=== PATIENT | male | born 1995 | race Caucasian/White ===

== ENCOUNTER 2018-09-10 03:20 | Inpatient (IN) | payer OTHER ==
[~2018-09-10] VITALS: Ht 185.4 cm; Wt 71.9 kg
[2018-09-10] MEDS ORDERED: NS 1,000 ML IV ONE ×2 (03:45→06:00)
[2018-09-10 03:51] LABS: BASO % 0.5 % (0.0-1.0); EOS # 0.1 10^3/uL (0.0-0.50); EOS % 1.1 % (0.0-3.0); HEMATOCRIT 43.9 % (42.0-52.0); HEMOGLOBIN 15.4 g/dl (13.5-17.5); LYMPH # 2.2 10^3/uL (1.5-6.5); LYMPH % 26.6 % (24.0-44.0); MEAN CORPUSCULAR HEMOGLOBIN 30.1 pg (27.0-33.0); MEAN CORPUSCULAR HGB CONC 35.1 g/dl (32.0-36.5); MEAN CORPUSCULAR VOLUME 85.7 fl (80.0-96.0); MONO # 0.5 10^3/uL (0.0-0.8); MONO % 6.4 % (0.0-5.0); NEUTROPHILS # 5.5 10^3/uL (1.8-7.7); PLATELET COUNT, AUTOMATED 271 10^3/uL (150-450); RED BLOOD COUNT 5.12 10^6/uL (4.30-6.10); WHITE BLOOD COUNT 8.4 10^3/uL (4.0-10.0)
[2018-09-10 04:11] LABS: AMPHETAMINES LEVEL URINE NEGATIVE (NEGATIVE); BARBITURATES URINE NEGATIVE (NEGATIVE); BENZODIAZEPINES URINE NEGATIVE (NEGATIVE); CANNABINOIDS URINE NEGATIVE (NEGATIVE); COCAINE METABOLITE URINE NEGATIVE (NEGATIVE); METHADONE URINE NEGATIVE (NEGATIVE); OPIATES URINE NEGATIVE (NEGATIVE); PHENCYCLIDINE URINE NEGATIVE (NEGATIVE)
[2018-09-10] MEDS ORDERED: TRAZ10TA PO (04:16)
[2018-09-10] MEDS ORDERED: PARO20TA3 PO (04:16)
[2018-09-10] MEDS ORDERED: PARO5TAB PO (04:16)
[2018-09-10] MEDS ORDERED: HYDRO50TAB PO (04:16)
[2018-09-10 04:31] LABS: ACETAMINOPHEN LEVEL < 2.0 UG/ML (10.0-30.0); ALBUMIN 4.3 GM/DL (3.2-5.2); ALT/SGPT 20 U/L (12-78); BILIRUBIN,DIRECT 0.1 MG/DL (0.0-0.2); BILIRUBIN,TOTAL 0.4 MG/DL (0.2-1.0); BLOOD UREA NITROGEN 11 MG/DL (7-18); CALCIUM LEVEL 8.4 MG/DL (8.5-10.1); CARBON DIOXIDE LEVEL 26 MEQ/L (21-32); CHLORIDE LEVEL 104 MEQ/L (98-107); CPK CREATINE PHOSPHOKINASE 58 U/L (39-308); CREATININE FOR GFR 0.91 MG/DL (0.70-1.30); ETHYL ALCOHOL (ETHANOL) < 0.003 % (0.000-0.010); GLUCOSE, FASTING 109 MG/DL (70-100); POTASSIUM SERUM 3.7 MEQ/L (3.5-5.1); SALICYLATE LEVEL < 1.7 MG/DL (5.0-30.0); SODIUM LEVEL 139 MEQ/L (136-145); TOTAL PROTEIN 7.5 GM/DL (6.4-8.2)
[2018-09-10] MEDS ORDERED: HYDR-3363 PO (10:24)
[2018-09-10] MEDS ORDERED: traZODone 50 MG TAB PO PRN (10:30)
[2018-09-10] MEDS ORDERED: ACETAMINOPHEN TAB 650MG DOSE (2X325MG) PO PRN (10:30)
[2018-09-10] MEDS ORDERED: IBUPROFEN 400 MG TAB PO PRN (10:30)
[2018-09-10] MEDS ORDERED: MOM 30ML SUSPENSION UDC PO PRN (10:30)
[2018-09-10 11:05] VITALS: BP 132/65
--- NOTE | 2018-09-10 13:17 | ECGEPIP ---
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
[2018-09-10] MEDS ORDERED: hydrOXYzine 25 MG TAB PO PRN (14:00)
[2018-09-10] MEDS: NICOTINE 21MG/24HR 1 EA TRANSDERMAL TD SCH (17:42)
[2018-09-10 18:00] VITALS: BP 112/68
--- NOTE | 2018-09-10 18:26 | MHHPEPDOC ---
General Chief Complaint I tried to kill myself by taking pills. History of Present Illness HISTORY OF THE PRESENT ILLNESS: Patient is a 22 -year-old , male, who as per ED report: "Pt presented to ED via [facility] after overdose on unknown quantity of Trazadone and Hydroxizine as SI attempt. Pt teary stated, depressed "all my life". According to Pt, stopped taking his meds last Thursday, "Made me tired and angry", "If some little thing would happen, I would just flip out". . Pt reported being chaptered out of , filing a [employer] case against him. Pt stated, no sense in going to PT and does not show up for work. Pt reported hx of substance abuse (cocaine), last used over a month ago. One trigger for increased depression is increase arguments with GF of 10 months, according to Pt. GF lives in [facility]. 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 Pt seen @ [facility]; Dr. Mahajan for therapy and Psy for meds. Pt also seen by Dr. Carlson weekly for substance abuse." Psychiatric Review of Systems Depression (2 or more weeks): depressed mood, insomnia/hypersomnia, feelings of worthlesness (hopeless), decreased energy, difficulty concentrating, appetite changes Analy (4 or more days of): denies Psychosis: denies PTSD: denies Anxiety: gen/non-specific anxiety Anxiety/ 6 months or more of: restlessness, keyed up, easily fatigued, difficulty concentrating, irritability, muscle tension, sleep disturbance Past Psychiatric History Previous Psychiatric Diagnosis: Denies Previous Psychiatric Admissions: Denies Suicide Attempts: None previous to this one ( ingesting Trazodone and Hydrox yzine tabs.) Psychiatric Follow-up: At [facility] Psychiatric medications: Trazodone, Hydroxyzine and paxil Past Medical History Head Injury: No Seizures: No Hospitalizations: Yes Surgeries: Yes ([place] tooth) Family Medical/Psychiatric HX Medical Problems Not aware of Psychiatric Disorders: Yes (Mom is very anxious, he says) Addiction: Yes (Father was an alcoholic) Suicide Attemps/Completions: No Addiction History nicotine, alcohol (occasionally), cocaine (drug of choice, meakes him feel unstoppable. ) Social History Childhood: Parents split when he was 6, he got a stepfather when he was in Middle school, he never liked him. He liked going to school. 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 Social Support: Legal: he is being chaptered out of the [employer] Marital: single, no children Mental Status Examination General Appearance: well groomed, appears stated age, hospital scubs/clothing Build: average Demeanor: withdrawn Eye Contact: avoidant (Because he was very sleepy) Activity: slowed Behavior: cooperative, loss of interests, anhedonia Speech: reg/rate,rhythm,volume Mood: depressed Affect: constricted, congruent Thought Process: logical/linear Thought Content (Delusions): none reported Thought Content (Other): none reported Thought Content (Aggressive): none reported Perception (Hallucinations): none reported Perception (Other): none reported Cognition (Impairment of): none reported Cognition(Intelligence Est.): average Oriented: Awake, Alert Insight: poor Judgment: Poor Diagnoses 1. Major Depressive disorder, recurrent 2. cocaine use disorder 3. R/O SALLY 4. R/O substance induced mood disorder Assessment Patient is very sleepy, possibly because he took an unspecified amount of Trazodone and Hydroxyzine. Will monitor closely. Initial Treatment Plan 1. Patient was admitted on a [9.39] status. 2. Complete history was obtained. 3. With patients permission, family will be contacted and database will be expanded. 4. Patients medication regimen will be reviewed and changed accordingly. 5. Patient will be provided with protected environment. 6. Patient will be treated with individual, group, and milieu therapies. 7. Patient will receive supportive psych-education. 8. Discharge planning will commence immediately. 9. Outpatient follow-up treatment will be strongly recommended. 10. The initial treatment plan will focus initially on: * Depression. * Risk for suicide. * Substance abuse. ESTIMATED LENGTH OF STAY: 5-7 DAYS. TIME SPENT COUNSELING AND COORDINATING INITIAL CARE: 45minutes. Vital Signs Vital Signs Date Time Temp Pulse Resp B/P (MAP) Pulse Ox O2 Delivery O2 Flow Rate FiO2 09/10/18 11:05 98.2 92 16 132/65 (87) 97 09/10/18 10:52 Room Air Laboratory Data 24H Labs Laboratory Tests 2 09/10/18 03:37: Immature Granulocyte % (Auto) 0.4, White Blood Count 8.4, Red Blood Count 5.12, Hemoglobin 15.4, Hematocrit 43.9, Mean Corpuscular Volume 85.7, Mean Corpuscular Hemoglobin 30.1, Mean Corpuscular Hemoglobin Concent 35.1, Red Cell Distribution Width 12.1, Platelet Count 271, Neutrophils (%) (Auto) 65.0, Lymphocytes (%) (Auto) 26.6, Monocytes (%) (Auto) 6.4H, Eosinophils (%) (Auto) 1.1, Basophils (%) (Auto) 0.5, Neutrophils # (Auto) 5.5, Lymphocytes # (Auto) 2.2, Monocytes # (Auto) 0.5, Eosinophils # (Auto) 0.1, Basophils # (Auto) 0.0, Nucleated Red Blood Cells % (auto) 0.0, Anion Gap 9, Calcium Level 8.4L, Aspartate Amino Transf (AST/SGOT) 13, Alanine Aminotransferase (ALT/SGPT) 20, Alkaline Phosphatase 63, Total Bilirubin 0.4, Direct Bilirubin 0.1, Total Creatine Kinase 58, Total Protein 7.5, Albumin 4.3, Albumin/Globulin Ratio 1.34, Thyroid Stimulating Hormone (TSH) 2.080, Salicylates Level < 1.7L, Urine Amphetamines Screen NEGATIVE, Urine Benzodiazepines Screen NEGATIVE, Urine Opiates Screen NEGATIVE, Urine Methadone Screen NEGATIVE, Acetaminophen Level < 2.0L, Urine Barbiturates Screen NEGATIVE, Urine Phencyclidine Screen NEGATIVE, Urine Cocaine Metabolite Screen NEGATIVE, Urine Cannabinoids Screen NEGATIVE, Ethyl Alcohol Level < 0.003 09/10/18 04:05: Bedside Glucose (Misc Panel) 96 CBC/BMP Laboratory Tests 09/10/18 03:37 Red Blood Count 5.12, Mean Corpuscular Volume 85.7, Mean Corpuscular Hemoglobin 30.1, Mean Corpuscular Hemoglobin Concent 35.1, Red Cell Distribution Width 12.1, Neutrophils (%) (Auto) 65.0, Lymphocytes (%) (Auto) 26.6, Monocytes (%) (Auto) 6.4 H, Eosinophils (%) (Auto) 1.1, Basophils (%) (Auto) 0.5, Neutrophils # (Auto) 5.5, Lymphocytes # (Auto) 2.2, Monocytes # (Auto) 0.5, Eosinophils # (Auto) 0.1, Basophils # (Auto) 0.0 Medications Scheduled Hydroxyzine HCl (Hydroxyzine HCl) 25 Mg Tab, 100 MG PO QHS, (Reported) Paroxetine (Paroxetine HCl) 20 Mg Tab, 20 MG PO DAILY, (Reported) Trazodone HCl (Trazodone HCl) 100 Mg Tab, 200 MG PO QHS, (Reported) Allergies Coded Allergies: No Known Allergies (Unverified , 09/10/18) EUGENE HOBBS MD Sep 10, 2018 15:37
[2018-09-10] MEDS ORDERED: traZODone 100 MG TAB PO SCH (21:00)
[2018-09-11 06:00] VITALS: BP 105/59
[2018-09-11] MEDS: SERTRALINE HCL 50 MG TAB PO SCH (08:18)
[2018-09-11] MEDS: NICOTINE 21MG/24HR 1 EA TRANSDERMAL TD SCH (08:18)
[2018-09-11 18:00] VITALS: BP 98/60
[2018-09-11] MEDS: zolPIDEM CR 6.25MG TABLET (AMBIEN CR) PO PRN (21:28)
[2018-09-12 06:00] VITALS: BP 115/59
[2018-09-12] MEDS: SERTRALINE HCL 50 MG TAB PO SCH (08:06)
[2018-09-12] MEDS: NICOTINE 21MG/24HR 1 EA TRANSDERMAL TD SCH (08:06)
--- NOTE | 2018-09-12 16:50 | MHIPN ---
DATE: 09/11/2018 CHIEF COMPLAINT: Feels better. SUBJECTIVE: Is seen for followup in the presence of staff. Says feels better, less anxious. Says sleep is improved, which he feels has helped. MENTAL STATUS EXAMINATION: Neat, cooperative. There is no agitation. No psychomotor retardation. He is coherent. Affect is restricted in range, somewhat incongruent with mood. Denies any suicidal thoughts or intents at present. No homicidal ideas or intents. No current evidence of any psychosis. Cognition is grossly intact. Judgment is good, possibly improved. Insight is fair. ASSESSMENT: 1. Major depressive disorder, recurrent. 2. Cocaine use disorder. 3. Rule out generalized anxiety disorder. PLAN: Continue current care, observations. Encourage participation in activities in the unit. VITAL SIGNS: These are as listed. Blood pressure 105/59, pulse 59, temperature 97.6.
[2018-09-12 18:00] VITALS: BP 128/82
[2018-09-12] MEDS: zolPIDEM CR 6.25MG TABLET (AMBIEN CR) PO PRN (20:39)
[2018-09-13 06:51] VITALS: BP 108/69
[2018-09-13] MEDS: SERTRALINE HCL 50 MG TAB PO SCH (08:00)
[2018-09-13] MEDS: NICOTINE 21MG/24HR 1 EA TRANSDERMAL TD SCH (08:00)
--- NOTE | 2018-09-13 17:18 | MHIPN ---
DATE: 09/12/2018 CHIEF COMPLAINT: He says he feels better. SUBJECTIVE: He is seen for followup. He indicates he feels better, less anxious, less depressed, says is glad he is here, and that he is away from his stressors, which he suggests is mostly the , the whole setup, and the way things are done. He says he has spoken with his mother, who is aware that he is here. MENTAL STATUS EXAMINATION: Neat, cooperative. Coherent. No agitation. No psychomotor retardation. Affect is a bit broader than yesterday. He denies any suicidal thoughts or intents. No homicidal ideas or intents. No current evidence of any psychosis. Cognition is grossly intact. His judgment and insight remain compromised. ASSESSMENT: 1. Major depressive disorder, recurrent. 2. Cocaine use disorder, PLAN: Continue current care, observations. VITAL SIGNS: Blood pressure 115/59, pulse 55, temperature 98.1. He will be seeing the psychiatrist as well as the treatment team tomorrow.
[2018-09-13 18:00] VITALS: BP 128/66
--- NOTE | 2018-09-13 19:20 | MHIPNPDOC ---
[facility] Progress Note Progress Note DATE OF SERVICE: 09/13/18 HISTORY: Chief Complaint I tried to kill myself by taking pills. History of Present Illness HISTORY OF THE PRESENT ILLNESS: Patient is a 22 -year-old , male, who as per ED report: "Pt presented to ED via . [facility] after overdose on unknown quantity of Trazadone and Hydroxizine as SI attempt. Pt teary stated, depressed "all my life". According to Pt, stopped taking his meds last Thursday, "Made me tired and angry", "If some little thing would happen, I would just flip out". . Pt reported being chaptered out of , filing a [employer] case against him. Pt stated, no sense in going to PT and does not show up for work. Pt reported hx of substance abuse (cocaine), last used over a month ago. One trigger for increased depression is increase arguments with GF of 10 months, according to Pt. GF lives in [facility]. 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 Pt seen @ [facility]; Dr. Mahajan for therapy and Psy for meds. Pt also seen by Dr. Carlson weekly for substance abuse." VITAL SIGNS: See below. NEW TEST RESULTS: See below CURRENT MEDICATIONS: See below. MENTAL STATUS EXAMINATION: Patient is a 22-year old male, who is alert, cooperative, presents to the office wearing personal clothes, proper hygiene and grooming. Speech: Is normal in rate, tone and volume. Spontaneous and fluent. Language skills are good. Thought processes including: intact, logical, coherent. Thought content: anxious thoughts about being from the . Abstract reasoning, and computation: good. Description of associations: good, intact. Description of abnormal or psychotic thoughts: Denies SI, denies HI, denies AV hallucinations, denies thought delusions Judgment: Poor Insight: poor. Orientation: x 3. Recent and remote memory: good. Attention span and concentration: good. Language: normal, well structured, fair vocabulary. Fund of knowledge: average. Mood: anxious/sad. Affect: congruent with mood. DIAGNOSES: 1. Major Depressive disorder, recurrent 2. cocaine use disorder 3. R/O SALLY 4. R/O substance induced mood disorder ASSESSMENT: Patient is stable but he tries to mnimize his problems/symptoms. He is still not very opened about what motivated his recent severe overdose with Trazodone and Hydroxyzine, although he blames it on recent problems with his GF and stress from his job because he is being chaptered out of the . Patient agrees to go to long term care administrator treatment, he says he would like to have more information about it and tw informed him that his d/c account planner will provide him with that information. He says that Zoloft makes him feel a little bit cloudy in the morning, for a bout an hour but it goes away and then, he feels alright. MANAGEMENT PLAN: Will continue with current treatment plan TIME SPENT: 20 minutes. Vital Signs Vital Signs Date Time Temp Pulse Resp B/P (MAP) Pulse Ox O2 Delivery O2 Flow Rate FiO2 09/13/18 18:00 98.5 100 18 128/66 (86) 09/10/18 11:05 97 09/10/18 10:52 Room Air Current Medications Current Medications Acetaminophen (Tylenol Tab) 650 mg Q6HP PRN PO HEADACHE or DISCOMFORT Last ad ministered on 09/12/18at 13:48; Start 09/10/18 at 10:30 Home Med (Med Rec Complete!) ASDIRECTED XX ; Start 09/10/18 at 10:30; Stop 09/10/18 at 10:30; Status DC Hydroxyzine HCl (Atarax) 25 mg QHSP PRN PO INSOMNIA; Start 09/10/18 at 14:00 Ibuprofen (Advil) 400 mg Q6HP PRN PO PAIN; Start 09/10/18 at 10:30; Status Cancel Magnesium Hydroxide (Milk Of Magnesia) 30 ml DAILYPRN PRN PO CONSTIPATION; Start 09/10/18 at 10:30 Nicotine (Nicoderm Cq 21mg) 1 patch DAILY TD Last administered on 09/13/18at 08:00; Start 09/10/18 at 09:00 Sertraline HCl (Zoloft) 50 mg DAILY PO Last administered on 09/13/18at 08:00; Start 09/11/18 at 09:00 Trazodone HCl (Desyrel) 50 mg QHSP PRN PO INSOMNIA; Start 09/10/18 at 10:30; Status Cancel Trazodone HCl (Desyrel) 200 mg QHS PO ; Start 09/10/18 at 21:00; Status Cancel Zolpidem Tartrate (Ambien Cr) 12.5 mg QHSP PRN PO SLEEP Last administered on 09/12/18at 20:39; Start 09/10/18 at 15:45 Allergies Coded Allergies: No Known Allergies (Unverified , 09/10/18) EUGENE HOBBS MD Sep 13, 2018 19:14
[2018-09-13] MEDS: zolPIDEM CR 6.25MG TABLET (AMBIEN CR) PO PRN (20:10)
[2018-09-14 06:43] VITALS: BP 114/76
[2018-09-14] MEDS: SERTRALINE HCL 50 MG TAB PO SCH (08:09)
[2018-09-14] MEDS: NICOTINE 21MG/24HR 1 EA TRANSDERMAL TD SCH (08:09)
--- NOTE | 2018-09-14 10:54 | HPE ---
DATE OF ADMISSION: 09/10/2018 HISTORY OF PRESENT ILLNESS: Please refer to psychiatric history and evaluation for further details on this admission. This examination and history is intended for medical issues, which may need treatment, followup or consultation on this 22-year old male. ALLERGIES: No known drug allergies. PRIMARY CARE PROVIDER: [facility] at [place]. 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 ETOH: Approximately once a month. Smokes one-half pack cigarettes per day. Recreational drug use: Cocaine. He has done none for two months. PAST MEDICAL HISTORY: Depression, anxiety. PAST SURGICAL HISTORY: [place] teeth extraction. HOME MEDICATIONS: - hydroxyzine 100 mg by mouth nightly - paroxetine 20 mg by mouth by mouth daily - trazodone 200 mg by mouth daily FAMILY HISTORY: Noncontributory. LABORATORY STUDIES: WBC 8.4, hemoglobin 15.4, hematocrit 43.9, platelets 271. Electrolytes were normal. BUN 11, creatinine 0.91. Calcium slightly low at 8.4. toxicology was . REVIEW OF SYSTEMS: 10-systems reviewed and were unremarkable. Patient had no complaints. PHYSICAL EXAMINATION: GENERAL: 22-year-old cooperative male, no acute distress. VITAL SIGNS: Height 73 inches, weight 72.7 kilograms, body mass index (BMI) 21.1. Blood pressure 105/59, pulse 59, respiratory rate 15, temperature 97.6. Patient is alert and oriented times three. Pupils equal, reactive to light. Extraocular muscles intact. Cornea and sclerae clear. Conjunctiva is normal. No facial asymmetry. Pharynx, tongue and gums pink and moist. Tongue is midline. Neck is supple without lymphadenopathy. No thyromegaly. No goiter. Carotids 2+ without bruit. CHEST: Clear to auscultation without wheeze or retraction. Heart is regular. ABDOMEN: Benign. Bowel sounds positive. GENITOURINARY ()/RECTAL: Not done. EXTREMITIES: Show equal strength, full range of motion. No cyanosis, clubbing, or edema. Peripheral pulses equal and palpable bilaterally. SKIN: Is warm and dry. IMPRESSION/PLAN: 1. Psychiatric plan per psychiatry. 2. No acute medical issues.
[2018-09-14 18:00] VITALS: BP 120/56
--- NOTE | 2018-09-14 18:55 | MHIPNPDOC ---
[facility] Progress Note Progress Note DATE OF SERVICE: 09/14/18 HISTORY: Chief Complaint I tried to kill myself by taking pills. History of Present Illness HISTORY OF THE PRESENT ILLNESS: Patient is a 22 -year-old , male, who as per ED report: "Pt presented to ED via . [facility] after overdose on unknown quantity of Trazadone and Hydroxizine as SI attempt. Pt teary stated, depressed "all my life". According to Pt, stopped taking his meds last Thursday, "Made me tired and angry", "If some little thing would happen, I would just flip out". . Pt reported being chaptered out of , filing a [employer] case against him. Pt stated, no sense in going to PT and does not show up for work. Pt reported hx of substance abuse (cocaine), last used over a month ago. One trigger for increased depression is increase arguments with GF of 10 months, according to Pt. GF lives in [facility]. 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 Pt seen @ [facility]; Dr. Mahajan for therapy and Psy for meds. Pt also seen by Dr. Carlson weekly for substance abuse." VITAL SIGNS: See below. NEW TEST RESULTS: See below CURRENT MEDICATIONS: See below. MENTAL STATUS EXAMINATION: Patient is a 22-year old male, who is alert, cooperative, presents to the office wearing personal clothes, proper hygiene and grooming. Speech: Is normal in rate, tone and volume. Spontaneous and fluent. Language skills are good. Thought processes including: intact, logical, coherent. Thought content: anxious thoughts about going to long-term treatment Abstract reasoning, and computation: good. Description of associations: good, intact. Description of abnormal or psychotic thoughts: Denies SI, denies HI, denies AV hallucinations, denies thought delusions Judgment: Poor Insight: poor. Orientation: x 3. Recent and remote memory: good. Attention span and concentration: good. Language: normal, well structured, fair vocabulary. Fund of knowledge: average. Mood: anxious/sad. Affect: congruent with mood. DIAGNOSES: 1. Major Depressive disorder, recurrent 2. cocaine use disorder 3. R/O SALLY 4. R/O substance induced mood disorder ASSESSMENT: Patient had agreed going to long-term treatment but now he says he doesn't want to go, that when he thinks about it he becomes really frightened, that he doesn't get "a good vibe" of "that place". 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 Patient continues to refuse. Otherwise he was pleasant, cooperative but still anxious MANAGEMENT PLAN: Will continue with current treatment plan TIME SPENT: 20 minutes. Vital Signs Vital Signs Date Time Temp Pulse Resp B/P (MAP) Pulse Ox O2 Delivery O2 Flow Rate FiO2 09/14/18 18:00 99.3 83 16 120/56 (77) 09/14/18 09:09 Room Air 09/10/18 11:05 97 Current Medications Current Medications Acetaminophen (Tylenol Tab) 650 mg Q6HP PRN PO HEADACHE or DISCOMFORT Last administered on 09/12/18at 13:48; Start 09/10/18 at 10:30 Home Med (Med Rec Complete!) ASDIRECTED XX ; Start 09/10/18 at 10:30; Stop 09/10/18 at 10:30; Status DC Hydroxyzine HCl (Atarax) 25 mg QHSP PRN PO INSOMNIA; Start 09/10/18 at 14:00 Ibuprofen (Advil) 400 mg Q6HP PRN PO PAIN; Start 09/10/18 at 10:30; Status C ancel Magnesium Hydroxide (Milk Of Magnesia) 30 ml DAILYPRN PRN PO CONSTIPATION; Start 09/10/18 at 10:30 Nicotine (Nicoderm Cq 21mg) 1 patch DAILY TD Last administered on 09/14/18at 08:09; Start 09/10/18 at 09:00 Sertraline HCl (Zoloft) 50 mg DAILY PO Last administered on 09/14/18at 08:09; Start 09/11/18 at 09:00 Trazodone HCl (Desyrel) 50 mg QHSP PRN PO INSOMNIA; Start 09/10/18 at 10:30; Status Cancel Trazodone HCl (Desyrel) 200 mg QHS PO ; Start 09/10/18 at 21:00; Status Cancel Zolpidem Tartrate (Ambien Cr) 12.5 mg QHSP PRN PO SLEEP Last administered on 09/13/18at 20:10; Start 09/10/18 at 15:45 Allergies Coded Allergies: No Known Allergies (Unverified , 09/10/18) EUGENE HOBBS MD Sep 14, 2018 18:55
[2018-09-14] MEDS: zolPIDEM CR 6.25MG TABLET (AMBIEN CR) PO PRN (20:20)
[2018-09-15 06:46] VITALS: BP 99/55
[2018-09-15] MEDS: SERTRALINE HCL 50 MG TAB PO SCH (08:15)
[2018-09-15] MEDS: NICOTINE 21MG/24HR 1 EA TRANSDERMAL TD SCH (08:16)
--- NOTE | 2018-09-15 11:12 | MHIPNPDOC ---
[facility] Progress Note Progress Note DATE OF SERVICE: 09/15/18 HISTORY: Chief Complaint I tried to kill myself by taking pills. History of Present Illness HISTORY OF THE PRESENT ILLNESS: Patient is a 22 -year-old , male, who as per ED report: "Pt presented to ED via . [facility] after overdose on unknown quantity of Trazadone and Hydroxizine as SI attempt. Pt teary stated, depressed "all my life". According to Pt, stopped taking his meds last Thursday, "Made me tired and angry", "If some little thing would happen, I would just flip out". . Pt reported being chaptered out of , filing a [employer]ARP case against him. Pt stated, no sense in going to PT and does not show up for work. Pt reported hx of substance abuse (cocaine), last used over a month ago. One trigger for increased depression is increase arguments with GF of 10 months, according to Pt. GF lives in [facility]. 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 Pt seen @ [facility]; Dr. Mahajan for therapy and Psy for meds. Pt also seen by Dr. Carlson weekly for substance abuse." VITAL SIGNS: See below. NEW TEST RESULTS: See below CURRENT MEDICATIONS: See below. MENTAL STATUS EXAMINATION: Patient is a 22-year old male, who is alert, cooperative, presents to the office wearing personal clothes, proper hygiene and grooming. Speech: Is normal in rate, tone and volume. Spontaneous and fluent. Language skills are good. Thought processes including: intact, logical, coherent. Thought content: anxious thoughts about future life plans Abstract reasoning, and computation: good. Description of associations: good, intact. Description of abnormal or psychotic thoughts: Denies SI, denies HI, denies AV hallucinations, denies thought delusions Judgment: Poor Insight: poor. Orientation: x 3. Recent and remote memory: good. Attention span and concentration: good. Language: normal, well structured, fair vocabulary. Fund of knowledge: average. Mood: less anxious/sad. Affect: congruent with mood. DIAGNOSES: 1. Major Depressive disorder, recurrent 2. cocaine use disorder 3. R/O SALLY 4. R/O substance induced mood disorder ASSESSMENT: Patient was asked by media planner / buyer and myself what his choice was for superintendent marine oil terminal care and he says that he has decided to refuse. superintendent marine oil terminal care was recommended but he says "he gets a really bad feeling in his stomach and that is scares him." He says that he is feeling much better since admission, his depression and anxiety have both improved. We discussed his plans for the future. He says that first his mother is going to come to [place] from their home in [place] and he plans to take a few days leave to be with her. He says he is a huge family oriented person and believes that missing home and his fami ly/GF is part of his depression. 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 He regularly attends group sessions and believes they are educational for him and fun. Otherwise he was pleasant, cooperative but still says he is "scared" about the rest of his life but recognizes that everyone has those fears about the next step. Manuel denies any suicidal ideations, no homicidal ideations. no paranoia, no AV hallucinations. MANAGEMENT PLAN: Will continue with current treatment plan Vital Signs Vital Signs Date Time Temp Pulse Resp B/P (MAP) Pulse Ox O2 Delivery O2 Flow Rate FiO2 09/15/18 06:46 98.1 62 12 99/55 (70) 09/14/18 09:09 Room Air 09/10/18 11:05 97 Current Medications Current Medications Acetaminophen (Tylenol Tab) 650 mg Q6HP PRN PO HEADACHE or DISCOMFORT Last administered on 09/12/18at 13:48; Start 09/10/18 at 10:30 Home Med (Med Rec Complete!) ASDIRECTED XX ; Start 09/10/18 at 10:30; Stop 09/10/18 at 10:30; Status DC Hydroxyzine HCl (Atarax) 25 mg QHSP PRN PO INSOMNIA; Start 09/10/18 at 14:00 Ibuprofen (Advil) 400 mg Q6HP PRN PO PAIN; Start 09/10/18 at 10:30; Status Cancel Magnesium Hydroxide (Milk Of Magnesia) 30 ml DAILYPRN PRN PO CONSTIPATION; Start 09/10/18 at 10:30 Nicotine (Nicoderm Cq 21mg) 1 patch DAILY TD Last administered on 09/15/18at 08:16; Start 09/10/18 at 09:00 Sertraline HCl (Zoloft) 50 mg DAILY PO Last administered on 09/15/18at 08:15; Start 09/11/18 at 09:00 Trazodone HCl (Desyrel) 50 mg QHSP PRN PO INSOMNIA; Start 09/10/18 at 10:30; Status Cancel Trazodone HCl (Desyrel) 200 mg QHS PO ; Start 09/10/18 at 21:00; Status Cancel Zolpidem Tartrate (Ambien Cr) 12.5 mg QHSP PRN PO SLEEP Last administered on 09/14/18at 20:20; Start 09/10/18 at 15:45 Allergies Coded Allergies: No Known Allergies (Unverified , 09/10/18) GME ATTESTATION GME ATTESTATION My faculty preceptor for this patient encounter was physically present during the encounter and was fully available. All aspects of the patient interview, e xamination, medical decision making process, and medical care plan development were reviewed and approved by the faculty preceptor. The faculty preceptor is aware and concurs with the plan as stated in the body of this note and will attest to such by his/her cosignature. ERINN ORTIZ S-III Sep 15, 2018 11:12
[2018-09-15 18:00] VITALS: BP 127/61
[2018-09-15] MEDS: zolPIDEM CR 6.25MG TABLET (AMBIEN CR) PO PRN (20:05)
[2018-09-16 06:41] VITALS: BP 95/52
[2018-09-16] MEDS: SERTRALINE HCL 50 MG TAB PO SCH (08:18)
[2018-09-16] MEDS: NICOTINE 21MG/24HR 1 EA TRANSDERMAL TD SCH (08:19)
--- NOTE | 2018-09-16 09:11 | MHIPNPDOC ---
[facility] Progress Note Progress Note DATE OF SERVICE: 09/16/18 HISTORY: Chief Complaint I tried to kill myself by taking pills. History of Present Illness HISTORY OF THE PRESENT ILLNESS: Patient is a 22 -year-old , male, who as per ED report: "Pt presented to ED via . [facility] after overdose on unknown quantity of Trazadone and Hydroxizine as SI attempt. Pt teary stated, depressed "all my life". According to Pt, stopped taking his meds last Thursday, "Made me tired and angry", "If some little thing would happen, I would just flip out". . Pt reported being chaptered out of , filing a SHARP case against him. Pt stated, no sense in going to PT and does not show up for work. Pt reported hx of substance abuse (cocaine), last used over a month ago. One trigger for increased depression is increase arguments with GF of 10 months, according to Pt. GF lives in [facility]. 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 Pt seen @ [facility]; Dr. Mahajan for therapy and Psy for meds. Pt also seen by Dr. Carlson weekly for substance abuse." VITAL SIGNS: See below. NEW TEST RESULTS: See below CURRENT MEDICATIONS: See below. MENTAL STATUS EXAMINATION: Patient is a 22-year old male, who is alert, cooperative, presents to the office wearing hospital scrubs, proper hygiene and grooming. Speech: Is normal in rate, tone and volume. Spontaneous and fluent. Language skills are good. Thought processes including: intact, logical, coherent. Thought content: anxious thoughts about future life plans Abstract reasoning, and computation: good. Description of associations: good, intact. Description of abnormal or psychotic thoughts: Denies SI, denies HI, denies AV hallucinations, denies thought delusions Judgment: limited Insight: limited Orientation: x 3. Recent and remote memory: good. Attention span and concentration: good. Language: normal, well structured, fair vocabulary. Fund of knowledge: average. Mood: less anxious/sad. Affect: congruent with mood. DIAGNOSES: 1. Major Depressive disorder, recurrent 2. cocaine use disorder 3. R/O SALLY 4. R/O substance induced mood disorder ASSESSMENT: Manuel was interviewed this morning and says that his depression and anxiety are "basically not there." He says that he has been feeling better, maybe a little bored, but he talks to people and goes to group sessions. He said that last night he called his GF back home in [place] but that it was like she did not really want to talk. He is not concerned or upset with this and says "if it works out, good. If it doesn't that's fine. I'm only 22." He was also in contact with his family regularly and that is going well. We talked about his support system at [facility]. He says that since he has been here his command has been visiting and "he didn't know they cared." He says that he learned that there are people on his side back at [facility] to help support him when he is discharged from the hospital before being chaptered. He continues to refuse termite treater treatment. Manuel denies any suicidal ideations, no homicidal ideations. no paranoia, no AV hallucinations. MANAGEMENT PLAN: Will continue with current treatment plan Vital Signs Vital Signs Date Time Temp Pulse Resp B/P (MAP) Pulse Ox O2 Delivery O2 Flow Rate FiO2 09/16/18 06:41 98.0 62 12 95/52 (66) 09/14/18 09:09 Room Air 09/10/18 11:05 97 Current Medications Current Medications Acetaminophen (Tylenol Tab) 650 mg Q6HP PRN PO HEADACHE or DISCOMFORT Last administered on 09/12/18at 13:48; Start 09/10/18 at 10:30 Home Med (Med Rec Complete!) ASDIRECTED XX ; Start 09/10/18 at 10:30; Stop 09/10/18 at 10:30; Status DC Hydroxyzine HCl (Atarax) 25 mg QHSP PRN PO INSOMNIA; Start 09/10/18 at 14:00 Ibuprofen (Advil) 400 mg Q6HP PRN PO PAIN; Start 09/10/18 at 10:30; Status Cancel Magnesium Hydroxide (Milk Of Magnesia) 30 ml DAILYPRN PRN PO CONSTIPATION; Start 09/10/18 at 10:30 Nicotine (Nicoderm Cq 21mg) 1 patch DAILY TD Last administered on 09/16/18at 08:19; Start 09/10/18 at 09:00 Sertraline HCl (Zoloft) 50 mg DAILY PO Last administered on 09/16/18at 08:18; Start 09/11/18 at 09:00 Trazodone HCl (Desyrel) 50 mg QHSP PRN PO INSOMNIA; Start 09/10/18 at 10:30; Status Cancel Trazodone HCl (Desyrel) 200 mg QHS PO ; Start 09/10/18 at 21:00; Status Cancel Zolpidem Tartrate (Ambien Cr) 12.5 mg QHSP PRN PO SLEEP Last administered on 09/15/18at 20:05; Start 09/10/18 at 15:45 Allergies Coded Allergies: No Known Allergies (Unverified , 09/10/18) GME ATTESTATION GME ATTESTATION My faculty preceptor for this patient encounter was physically present during the encounter and was fully available. All aspects of the patient interview, examination, medical decision making process, and medical care plan development were reviewed and approved by the faculty preceptor. The faculty preceptor is aware and concurs with the plan as stated in the body of this note and will attest to such by his/her cosignature. ERINN ORTIZ S-III Sep 16, 2018 09:11
[2018-09-16 18:00] VITALS: BP 122/63
[2018-09-16] MEDS: zolPIDEM CR 6.25MG TABLET (AMBIEN CR) PO PRN (21:02)
[2018-09-17 06:20] VITALS: BP 113/59
[2018-09-17] MEDS: SERTRALINE HCL 50 MG TAB PO SCH (08:54)
[2018-09-17] MEDS: NICOTINE 21MG/24HR 1 EA TRANSDERMAL TD SCH (08:55)
--- NOTE | 2018-09-17 11:49 | MHIPNPDOC ---
[facility] Progress Note Progress Note DATE OF SERVICE: 09/17/18 HISTORY: Chief Complaint I tried to kill myself by taking pills. History of Present Illness HISTORY OF THE PRESENT ILLNESS: Patient is a 22 -year-old , male, who as per ED report: "Pt presented to ED via . [facility] after overdose on unknown quantity of Trazadone and Hydroxizine as SI attempt. Pt teary stated, depressed "all my life". According to Pt, stopped taking his meds last Thursday, "Made me tired and angry", "If some little thing would happen, I would just flip out". . Pt reported being chaptered out of , filing a SHARP case against him. Pt stated, no sense in going to PT and does not show up for work. Pt reported hx of substance abuse (cocaine), last used over a month ago. One trigger for increased depression is increase arguments with GF of 10 months, according to Pt. GF lives in [facility]. 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 Pt seen @ [facility]; Dr. Mahajan for therapy and Psy for meds. Pt also seen by Dr. Carlson weekly for substance abuse." VITAL SIGNS: See below. NEW TEST RESULTS: See below CURRENT MEDICATIONS: See below. MENTAL STATUS EXAMINATION: Patient is a 22-year old male, who is alert, cooperative, presents to the office wearing hospital scrubs, proper hygiene and grooming. Speech: Is normal in rate, tone and volume. Spontaneous and fluent. Language skills are good. Thought processes including: intact, logical, coherent. Thought content: anxious thoughts about future life plans Abstract reasoning, and computation: good. Description of associations: good, intact. Description of abnormal or psychotic thoughts: Denies SI, denies HI, denies AV hallucinations, denies thought delusions Judgment: poor Insight: poor Orientation: x 3. Recent and remote memory: good. Attention span and concentration: good. Language: normal, well structured, fair vocabulary. Fund of knowledge: average. Mood: less anxious/sad. Affect: congruent with mood. DIAGNOSES: 1. Major Depressive disorder, recurrent 2. cocaine use disorder 3. R/O SALLY 4. R/O substance induced mood disorder ASSESSMENT: Manuel was interviewed this morning and once again says that his depression and anxiety are "basically not there." He says that he feels good, attends all group sessions, and is social. He continues to refuse alf treatment. Has poor insight about his current predicaments. Manuel denies any suicidal ideations, no homicidal ideations. no paranoia, no AV hallucinations. MANAGEMENT PLAN: Will continue with current treatment plan Vital Signs Vital Signs Date Time Temp Pulse Resp B/P (MAP) Pulse Ox O2 Delivery O2 Flow Rate FiO2 09/17/18 06:20 99.0 59 16 113/59 (77) 09/14/18 09:09 Room Air Current Medications Current Medications Acetaminophen (Tylenol Tab) 650 mg Q6HP PRN PO HEADACHE or DISCOMFORT Last administered on 09/12/18at 13:48; Start 09/10/18 at 10:30 Home Med (Med Rec Complete!) ASDIRECTED XX ; Start 09/10/18 at 10:30; Stop 09/10/18 at 10:30; Status DC Hydroxyzine HCl (Atarax) 25 mg QHSP PRN PO INSOMNIA; Start 09/10/18 at 14:00 Ibuprofen (Advil) 400 mg Q6HP PRN PO PAIN; Start 09/10/18 at 10:30; Status Cancel Magnesium Hydroxide (Milk Of Magnesia) 30 ml DAILYPRN PRN PO CONSTIPATION; Start 09/10/18 at 10:30 Nicotine (Nicoderm Cq 21mg) 1 patch DAILY TD Last administered on 09/17/18at 08:55; Start 09/10/18 at 09:00 Sertraline HCl (Zoloft) 50 mg DAILY PO Last administered on 09/17/18at 08:54; Start 09/11/18 at 09:00 Trazodone HCl (Desyrel) 50 mg QHSP PRN PO INSOMNIA; Start 09/10/18 at 10:30; Status Cancel Trazodone HCl (Desyrel) 200 mg QHS PO ; Start 09/10/18 at 21:00; Status Cancel Zolpidem Tartrate (Ambien Cr) 12.5 mg QHSP PRN PO SLEEP Last administered on 09/16/18at 21:02; Start 09/10/18 at 15:45 Allergies Coded Allergies: No Known Allergies (Unverified , 09/10/18) GME ATTESTATION GME ATTESTATION My faculty preceptor for this patient encounter was physically present during the encounter and was fully available. All aspects of the patient interview, examination, medical decision making process, and medical care plan development were reviewed and approved by the faculty preceptor. The faculty preceptor is aware and concurs with the plan as stated in the body of this note and will attest to such by his/her cosignature. ERINN ORTIZ OMS-III Sep 17, 2018 11:49
[2018-09-17 18:26] VITALS: BP 113/60
[2018-09-17] MEDS: zolPIDEM CR 6.25MG TABLET (AMBIEN CR) PO PRN (20:31)
[2018-09-18 06:37] VITALS: BP 97/50
[2018-09-18] MEDS: SERTRALINE HCL 50 MG TAB PO SCH (09:23)
[2018-09-18] MEDS: NICOTINE 21MG/24HR 1 EA TRANSDERMAL TD SCH (09:25)
[2018-09-18 18:00] VITALS: BP 118/64
[2018-09-18] MEDS: zolPIDEM CR 6.25MG TABLET (AMBIEN CR) PO PRN (20:39)
[2018-09-19 06:45] VITALS: BP 102/56
[2018-09-19] MEDS: SERTRALINE HCL 50 MG TAB PO SCH (09:45)
[2018-09-19] MEDS: NICOTINE 21MG/24HR 1 EA TRANSDERMAL TD SCH (09:47)
[2018-09-19 18:00] VITALS: BP 115/62
[2018-09-19] MEDS: zolPIDEM CR 6.25MG TABLET (AMBIEN CR) PO PRN (20:18)
[2018-09-20 07:16] VITALS: BP 100/55
[2018-09-20] MEDS: NICOTINE 21MG/24HR 1 EA TRANSDERMAL TD SCH (08:28)
[2018-09-20] MEDS: SERTRALINE HCL 50 MG TAB PO SCH (08:28)
--- NOTE | 2018-09-20 17:14 | MHIPNPDOC ---
[facility] Progress Note Progress Note DATE OF SERVICE: 09/20/18 HISTORY: Chief Complaint I tried to kill myself by taking pills. History of Present Illness HISTORY OF THE PRESENT ILLNESS: Patient is a 22 -year-old , male, who as per ED report: "Pt presented to ED via . [facility] after overdose on unknown quantity of Trazadone and Hydroxizine as SI attempt. Pt teary stated, depressed "all my life". According to Pt, stopped taking his meds last Thursday, "Made me tired and angry", "If some little thing would happen, I would just flip out". . Pt reported being chaptered out of , filing a SHARP case against him. Pt stated, no sense in going to PT and does not show up for work. Pt reported hx of substance abuse (cocaine), last used over a month ago. One trigger for increased depression is increase arguments with GF of 10 months, according to Pt. GF lives in [facility]. 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 Pt seen @ [facility]; Dr. Mahajan for therapy and Psy for meds. Pt also seen by Dr. Carlson weekly for substance abuse." VITAL SIGNS: See below. NEW TEST RESULTS: See below CURRENT MEDICATIONS: See below. MENTAL STATUS EXAMINATION: Patient is a 22-year old male, who is alert, cooperative, presents to the office wearing hospital scrubs, proper hygiene and grooming. Speech: Is normal in rate, tone and volume. Spontaneous and fluent. Language skills are good. Thought processes including: intact, logical, coherent. Thought content: anxious thoughts about future life plans Abstract reasoning, and computation: good. Description of associations: good, intact. Description of abnormal or psychotic thoughts: Denies SI, denies HI, denies AV hallucinations, denies thought delusions Judgment: poor Insight: poor Orientation: x 3. Recent and remote memory: good. Attention span and concentration: good. Language: normal, well structured, fair vocabulary. Fund of knowledge: average. Mood: less anxious/sad. Affect: congruent with mood. DIAGNOSES: 1. Major Depressive disorder, recurrent 2. cocaine use disorder 3. R/O SALLY 4. R/O substance induced mood disorder ASSESSMENT: Patient says he feels good, he was bored over the weekend, one of his higher ups showed up during the weekend and he is not discloseing what they talked about, only that the conversation went OK. MANAGEMENT PLAN: Will continue with current treatment plan Vital Signs Vital Signs Date Time Temp Pulse Resp B/P (MAP) Pulse Ox O2 Delivery O2 Flow Rate FiO2 09/20/18 07:16 98.3 67 12 100/55 (70) 09/19/18 07:54 Room Air Current Medications Current Medications Acetaminophen (Tylenol Tab) 650 mg Q6HP PRN PO HEADACHE or DISCOMFORT Last administered on 09/12/18at 13:48; Start 09/10/18 at 10:30 Home Med (Med Rec Complete!) ASDIRECTED XX ; Start 09/10/18 at 10:30; Stop 09/10/18 at 10:30; Status DC Hydroxyzine HCl (Atarax) 25 mg QHSP PRN PO INSOMNIA; Start 09/10/18 at 14:00 Ibuprofen (Advil) 400 mg Q6HP PRN PO PAIN; Start 09/10/18 at 10:30; Status Cancel Magnesium Hydroxide (Milk Of Magnesia) 30 ml DAILYPRN PRN PO CONSTIPATION; Start 09/10/18 at 10:30 Nicotine (Nicoderm Cq 21mg) 1 patch DAILY TD Last administered on 09/20/18at 08:28; Start 09/10/18 at 09:00 Sertraline HCl (Zoloft) 50 mg DAILY PO Last administered on 09/20/18at 08:28; Start 09/11/18 at 09:00 Trazodone HCl (Desyrel) 50 mg QHSP PRN PO INSOMNIA; Start 09/10/18 at 10:30; Status Cancel Trazodone HCl (Desyrel) 200 mg QHS PO ; Start 09/10/18 at 21:00; Status Cancel Zolpidem Tartrate (Ambien Cr) 12.5 mg QHSP PRN PO SLEEP Last administered on 09/19/18at 20:18; Start 09/10/18 at 15:45 Allergies Coded Allergies: No Known Allergies (Unverified , 09/10/18) EUGENE HOBBS MD Sep 20, 2018 10:49
[2018-09-20 18:00] VITALS: BP 112/60
[2018-09-20] MEDS: zolPIDEM CR 6.25MG TABLET (AMBIEN CR) PO PRN (20:33)
[2018-09-21 06:36] VITALS: BP 115/56
[2018-09-21] MEDS: SERTRALINE HCL 50 MG TAB PO SCH (08:53)
[2018-09-21] MEDS: NICOTINE 21MG/24HR 1 EA TRANSDERMAL TD SCH (08:53)
[2018-09-21] MEDS ORDERED: NICO21PAT TD (10:02)
[2018-09-21] MEDS ORDERED: AMBI6.25 PO ×2 (10:02→10:06)
[2018-09-21] MEDS ORDERED: SERT50TA PO (10:02)
[2018-09-21] MEDS ORDERED: HYDR100C PO (10:11)
--- NOTE | 2018-09-21 20:57 | MHDSPDOC ---
[facility] Discharge Summary Discharge Summary DATE OF ADMISSION: Sep 10, 2018 at 10:20 DATE OF DISCHARGE: Sep 21, 2018 at 12:00 DISCHARGE DIAGNOSES: 1. Major Depressive disorder, recurrent 2. cocaine use disorder 3. R/O SALLY 4. R/O substance induced mood disorder REASON FOR ADMISSION: Patient is a 22 -year-old , male, who as per ED report: "Pt presented to ED via [facility] after overdose on unknown quantity of Trazadone and Hydroxizine as SI attempt. Pt teary stated, depressed "all my life". According to Pt, stopped taking his meds last Thursday, "Made me tired and angry", "If some little thing would happen, I would just flip out". . Pt reported being chaptered out of , filing a [employer] case against him. Pt stated, no sense in going to PT and does not show up for work. Pt reported hx of substance abuse (cocaine), last used over a month ago. One trigger for increased depression is increase arguments with GF of 10 months, according to Pt. GF lives in [facility]. 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 Pt seen @ [facility]; Dr. Mahajan for therapy and Kay for meds. Pt also seen by Dr. Luna weekly for substance abuse. CONSULTANTS INVOLVED: None TREATMENT AND PROGRESS ON THE UNIT : Upon initial evaluation the patient was very sleepy. He sat on the chair and answered all my questions with his eyes closed, slurred speech. The patient mentioned later on that he hasn't been depressed all his life as he has said in the emergency room. He has never been abused as a child but not as an adolescent. The patient is facing a difficult situation at [facility] where he is being because he has been using cocaine and he goes to the substance abuse program at [facility]. He has been ibrahim and irritable because apparently he has been having problems with his girlfriend who resides in [place] but he minimizes all of this. He was accused of sexual harassment because one night him and his friends got all drunk and apparently when one of his peers was passed out, he took off his trousers and sat on his friend's face. That is what he told one of her nursing staff but he denied saying that he talked to me. He told me that he was stressed, he had his jeans on and he has sat on his friends face. Somebody recorded it and it was uploaded in the Internet. The patient never volunteered to speak about his problem until I asked one of the nurses to sit with him and asked him about what happened at [facility] and why he has been accused of sexual harassment. The patient didn't show anxiety or despair about this situation. 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 The patient refused to acknowledge that he had a real problem and refused to work on those problems because he was still in denial. He received treatment with Zoloft, received medications for anxiety and insomnia. He had a good response to medications and he denied medication side effects. He attended some groups and learn coping skills while he was at the inpatient mental health unit. His chain of command asked us to ask him if he would be interested in going to long-term treatment and initially he agreed and he said he already had discussed that with his therapist but when we asked again, 2 days later, he refused to go and he said that he was not going to go because "he got a bad vibe from that place, it gives me the creeps" HOSPITAL COURSE: As above DISCHARGE ASSESSMENT: Patient was not suicidal, not homicidal and not psychotic at the time of his discharge MENTAL STATUS EXAMINATION ON DISCHARGE: Patient is a 22-year old male, who is alert, cooperative, presents to the office wearing hospital scrubs, proper hygiene and grooming. Speech: Is normal in rate, tone and volume. Spontaneous and fluent. Language skills are good. Thought processes including: intact, logical, coherent. Thought content: anxious thoughts about future life plans Abstract reasoning, and computation: good. Description of associations: good, intact. Description of abnormal or psychotic thoughts: Denies SI, denies HI, denies AV hallucinations, denies thought delusions Judgment: poor Insight: poor Orientation: x 3. Recent and remote memory: good. Attention span and concentration: good. Language: normal, well structured, fair vocabulary. Fund of knowledge: average. Mood: euthymic Affect: congruent with mood. MEDICATIONS ON DISCHARGE: Scheduled Hydroxyzine Pamoate (Hydroxyzine Pamoate) 100 Mg Cap, 1 CAP PO QHS for INSOMNIA for 7 Days, #7 Nicotine (Nicotine Transdermal Syst) 21 Mg/24 Hr Dis, 1 PATCH TD DAILY for NICOTINE WITHDRAWALS, #7 Sertraline Hcl (Sertraline HCl) 50 Mg Tab, 50 MG PO DAILY for DEPRESSION/ANXIETY, #7 PLAN/FOLLOWUP ARRANGEMENTS: Follow Up Care Education Label * Mental Health Appt 1 * Additional information appts are at [facility] ([address]) except the [facility] appt is at [address] (right behind us in [address]). Post Hosp. Group IOP/DRUM1 CONCHITA WILLIAMSON [id number]@0930 GRP/120 Nursing F/U BEHAVIORAL HEALTH CL/DRUM1 RACHELMIKAYLA [id number]@1145 FTR/30 [facility] F/U [facility]/DRUM1 GEENA LUNA [id number]@1430 FTR/60 Medication F/U BEHAVIORAL HEALTH CL/DRUM1 NYASIA,SUM [id number]@1315 FTR/30 Therapy F/U BEH[facility]IORAL [facility] CL/DRUM1 ALCOVER-PAB [id number]@1400 FTR/60 BEHAVIORAL HEALTH CL/DRUM1 ALCOVER-PAB [id number]@1400 FTR/60 BEHAVIORAL HEALTH CL/DRUM1 ALCOVER-PAB [id number]@1400 FTR/60 BEHAVIORAL HEALTH CL/DRUM1 ALCOVER-PAB [id number]@1300 FTR/60 The amount of time spent in the coordination of care for this patient was approximately 30 minutes. Vital Signs/I&Os Vital Signs Date Time Temp Pulse Resp B/P (MAP) Pulse Ox O2 Delivery O2 Flow Rate FiO2 09/21/18 06:36 98.4 56 14 115/56 (75) 09/20/18 11:39 Room Air Medications Scheduled Hydroxyzine Pamoate (Hydroxyzine Pamoate) 100 Mg Cap, 1 CAP PO QHS for INSOMNIA for 7 Days, #7 Nicotine (Nicotine Transdermal Syst) 21 Mg/24 Hr Dis, 1 PATCH TD DAILY for NICOTINE WITHDRAWALS, #7 Sertraline Hcl (Sertraline HCl) 50 Mg Tab, 50 MG PO DAILY for DEPRESSION/ANXIETY, #7 Allergies Coded Allergies: No Known Allergies (Unverified , 09/10/18) EUGENE HOBBS MD Sep 21, 2018 20:55
== END 2018-09-21 12:00 | disposition home or self-care (01) | DRG 885 ==
LOC: M ED 03:20 → M ED INP 10:20 → M PSY 10:58
PROVIDERS: ADMIT Psychiatry & Neurology Psychiatry; ATTEND Psychiatry & Neurology Psychiatry
DX: F33.9 Major depressive disorder, recurrent, unspecified (principal); Z91.14 Patient's other noncompliance with medication regimen; Z81.8 Family history of other mental and behavioral disorders; Z81.1 Family history of alcohol abuse and dependence; F17.210 Nicotine dependence, cigarettes, uncomplicated; F14.14 Cocaine abuse with cocaine-induced mood disorder; F41.1 Generalized anxiety disorder; Z79.899 Other long term (current) drug therapy